=== PATIENT | male | born 1950 | race Caucasian/White ===

== ENCOUNTER → 2016-06-17 | Outpatient (CLI) | payer MEDICARE, OTHER ==
[~2016-06-17] VITALS: Ht 193 cm; Wt 94.0 kg
[~2016-06-17] MED LIST: ASPI-1093 PO; ATOR10TA84 PO; BACTDSB PO; COLL30OI TP; CYAN500 PO; DAPS100 PO; GABA-531 PO; LISI-660 PO; METF500T4 PO
[2016-06-17 08:34] VITALS: BP 145/72
== END | disposition home or self-care (01) ==
LOC: HBOWC 07:53
PROVIDERS: ATTEND Emergency Medicine Undersea and Hyperbaric Medicine
DX: E11.621 Type 2 diabetes mellitus with foot ulcer (principal); L97.521 Non-pressure chronic ulcer of other part of left foot limited to breakdown of skin; I48.91 Unspecified atrial fibrillation; Z89.022 Acquired absence of left finger(s); I25.2 Old myocardial infarction; E11.52 Type 2 diabetes mellitus with diabetic peripheral angiopathy with gangrene; I50.20 Unspecified systolic (congestive) heart failure; I87.2 Venous insufficiency (chronic) (peripheral); L95.0 Livedoid vasculitis; Z87.891 Personal history of nicotine dependence; Z79.01 Long term (current) use of anticoagulants; Z86.718 Personal history of other venous thrombosis and embolism; Z85.828 Personal history of other malignant neoplasm of skin; Z95.0 Presence of cardiac pacemaker
CPT/HCPCS: 97597

== ENCOUNTER → 2016-06-24 | Outpatient (CLI) | payer MEDICARE, OTHER ==
[~2016-06-24] MED LIST changes: +CLOTRIMAZOLE 1% 15 GM CREAM TP ONE
[2016-06-24 08:23] VITALS: BP 123/57
== END | disposition home or self-care (01) ==
LOC: HBOWC 08:20
PROVIDERS: ATTEND Emergency Medicine
DX: E11.621 Type 2 diabetes mellitus with foot ulcer (principal); L97.521 Non-pressure chronic ulcer of other part of left foot limited to breakdown of skin; I25.2 Old myocardial infarction; E11.52 Type 2 diabetes mellitus with diabetic peripheral angiopathy with gangrene; I48.91 Unspecified atrial fibrillation; I50.20 Unspecified systolic (congestive) heart failure; L84 Corns and callosities; Z95.0 Presence of cardiac pacemaker; Z89.022 Acquired absence of left finger(s); Z79.01 Long term (current) use of anticoagulants; Z86.718 Personal history of other venous thrombosis and embolism; Z85.828 Personal history of other malignant neoplasm of skin; Z87.891 Personal history of nicotine dependence
CPT/HCPCS: 97597

== ENCOUNTER → 2016-07-01 | Outpatient (CLI) | payer MEDICARE, OTHER ==
[~2016-07-01] MED LIST changes: -CLOTRIMAZOLE 1% 15 GM CREAM TP ONE
[2016-07-01 14:07] VITALS: BP 90/50
== END | disposition home or self-care (01) ==
LOC: HBOWC 13:26
PROVIDERS: ATTEND Emergency Medicine
DX: T81.31XD Disruption of external operation (surgical) wound, not elsewhere classified, subsequent encounter (principal); E11.621 Type 2 diabetes mellitus with foot ulcer; L97.521 Non-pressure chronic ulcer of other part of left foot limited to breakdown of skin; B35.3 Tinea pedis; M20.40 Other hammer toe(s) (acquired), unspecified foot; L85.9 Epidermal thickening, unspecified; I95.89 Other hypotension; I25.2 Old myocardial infarction; E11.52 Type 2 diabetes mellitus with diabetic peripheral angiopathy with gangrene; I48.91 Unspecified atrial fibrillation; I50.9 Heart failure, unspecified; I87.2 Venous insufficiency (chronic) (peripheral); Z85.828 Personal history of other malignant neoplasm of skin; Z95.0 Presence of cardiac pacemaker; Z89.442 Acquired absence of left ankle; Z87.891 Personal history of nicotine dependence; Z79.01 Long term (current) use of anticoagulants; Y83.8 Other surgical procedures as the cause of abnormal reaction of the patient, or of later complication, without mention of misadventure at the time of the procedure
CPT/HCPCS: 87070; 87205; 97597

== ENCOUNTER → 2016-07-08 | Outpatient (CLI) | payer MEDICARE, OTHER ==
[2016-07-08 08:19] VITALS: BP 114/62
== END | disposition home or self-care (01) ==
LOC: HBOWC 08:06
PROVIDERS: ATTEND Emergency Medicine
DX: T81.31XD Disruption of external operation (surgical) wound, not elsewhere classified, subsequent encounter (principal); E11.621 Type 2 diabetes mellitus with foot ulcer; L97.523 Non-pressure chronic ulcer of other part of left foot with necrosis of muscle; L84 Corns and callosities; I25.2 Old myocardial infarction; I50.9 Heart failure, unspecified; I95.9 Hypotension, unspecified; Z87.891 Personal history of nicotine dependence; Z85.828 Personal history of other malignant neoplasm of skin; Z95.0 Presence of cardiac pacemaker; Z89.442 Acquired absence of left ankle; Z79.01 Long term (current) use of anticoagulants; M20.41 Other hammer toe(s) (acquired), right foot; Z89.022 Acquired absence of left finger(s); Y83.8 Other surgical procedures as the cause of abnormal reaction of the patient, or of later complication, without mention of misadventure at the time of the procedure
CPT/HCPCS: 97597

== ENCOUNTER → 2016-07-15 | Outpatient (CLI) | payer MEDICARE, OTHER ==
[2016-07-15 10:19] VITALS: BP 121/60
== END | disposition home or self-care (01) ==
LOC: HBOWC 09:55
PROVIDERS: ATTEND Emergency Medicine
DX: T81.31XD Disruption of external operation (surgical) wound, not elsewhere classified, subsequent encounter (principal); E11.621 Type 2 diabetes mellitus with foot ulcer; L97.521 Non-pressure chronic ulcer of other part of left foot limited to breakdown of skin; E11.622 Type 2 diabetes mellitus with other skin ulcer; L98.491 Non-pressure chronic ulcer of skin of other sites limited to breakdown of skin; Z89.442 Acquired absence of left ankle; Z89.022 Acquired absence of left finger(s); L84 Corns and callosities; Z85.828 Personal history of other malignant neoplasm of skin; I25.2 Old myocardial infarction; E11.52 Type 2 diabetes mellitus with diabetic peripheral angiopathy with gangrene; I50.20 Unspecified systolic (congestive) heart failure; I48.91 Unspecified atrial fibrillation; I87.2 Venous insufficiency (chronic) (peripheral); Z86.718 Personal history of other venous thrombosis and embolism; M20.41 Other hammer toe(s) (acquired), right foot; Y83.8 Other surgical procedures as the cause of abnormal reaction of the patient, or of later complication, without mention of misadventure at the time of the procedure
CPT/HCPCS: 97597

== ENCOUNTER → 2016-07-22 | Outpatient (CLI) | payer MEDICARE, OTHER ==
[2016-07-22 10:37] VITALS: BP 136/66
== END | disposition home or self-care (01) ==
LOC: HBOWC 10:00
PROVIDERS: ATTEND Emergency Medicine
DX: T81.31XD Disruption of external operation (surgical) wound, not elsewhere classified, subsequent encounter (principal); E11.621 Type 2 diabetes mellitus with foot ulcer; L97.521 Non-pressure chronic ulcer of other part of left foot limited to breakdown of skin; Z89.442 Acquired absence of left ankle; Z89.022 Acquired absence of left finger(s); L84 Corns and callosities; I25.2 Old myocardial infarction; M20.41 Other hammer toe(s) (acquired), right foot; Z85.828 Personal history of other malignant neoplasm of skin; Z86.718 Personal history of other venous thrombosis and embolism; E11.52 Type 2 diabetes mellitus with diabetic peripheral angiopathy with gangrene; I48.91 Unspecified atrial fibrillation; I11.0 Hypertensive heart disease with heart failure; I50.20 Unspecified systolic (congestive) heart failure; I87.2 Venous insufficiency (chronic) (peripheral); Z87.891 Personal history of nicotine dependence; Z95.0 Presence of cardiac pacemaker; B35.1 Tinea unguium; Y83.8 Other surgical procedures as the cause of abnormal reaction of the patient, or of later complication, without mention of misadventure at the time of the procedure
CPT/HCPCS: 97597

== ENCOUNTER → 2016-07-29 | Outpatient (CLI) | payer MEDICARE, OTHER ==
[2016-07-29 10:11] VITALS: BP 145/80
== END | disposition home or self-care (01) ==
LOC: HBOWC 10:06
PROVIDERS: ATTEND Emergency Medicine
DX: T81.31XD Disruption of external operation (surgical) wound, not elsewhere classified, subsequent encounter (principal); E11.621 Type 2 diabetes mellitus with foot ulcer; L97.521 Non-pressure chronic ulcer of other part of left foot limited to breakdown of skin; E11.52 Type 2 diabetes mellitus with diabetic peripheral angiopathy with gangrene; I48.91 Unspecified atrial fibrillation; I11.0 Hypertensive heart disease with heart failure; I50.20 Unspecified systolic (congestive) heart failure; M20.41 Other hammer toe(s) (acquired), right foot; B35.1 Tinea unguium; Z89.442 Acquired absence of left ankle; Z89.022 Acquired absence of left finger(s); I25.2 Old myocardial infarction; Z86.718 Personal history of other venous thrombosis and embolism; Z85.828 Personal history of other malignant neoplasm of skin; Y83.8 Other surgical procedures as the cause of abnormal reaction of the patient, or of later complication, without mention of misadventure at the time of the procedure
CPT/HCPCS: 97597